=== PATIENT | female | born 1960 ===

== ENCOUNTER → 2017-01-09 | Outpatient (CLI) | payer SELFPAY | LOC: WCC 13:13 | DX: E11.621 Type 2 diabetes mellitus with foot ulcer (principal); L97.429 Non-pressure chronic ulcer of left heel and midfoot with unspecified severity; L97.529 Non-pressure chronic ulcer of other part of left foot with unspecified severity; Z89.511 Acquired absence of right leg below knee; Z79.82 Long term (current) use of aspirin | CPT/HCPCS: 17717; A6212; G0463 ==